=== PATIENT | female | born 1985 | race Hispanic/Latino ===

== ENCOUNTER 2017-04-03 12:53 | Emergency (ER) | payer OTHER ==
[2017-04-03 13:07] VITALS: BMI 25.1
[2017-04-03 13:09] VITALS: RESP 16; TEMP 98
--- NOTE | 2017-04-03 13:25 | ED PDOC ---
Arrival/HPI - General Chief Complaint: Chest Pain Time Seen by Provider: 04/03/17 13:16 Historian: Patient - History of Present Illness Narrative History of Present Illness (Text): 04/03/17 13:22 31 year old female presents to the emergency department with cough waking her up in the middle of the night around 2AM for the past week. She states she "can' t catch her breath" when episodes occur but then once the cough subsides she gets better and symptoms of sob resolve. Some postussive chest pain. No nasal congestion. Denies fever. No PMD Time/Duration: 1 week Symptom Onset: Gradual Symptom Course: Intermittent Associated Symptoms (Text): None Past Medical History - Provider Review Nursing Documentation Reviewed: Yes - Past History Past History: No Previous - Infectious Disease Hx of Infectious Diseases: None - Tetanus Immunization Tetanus Immunization: Unknown - Past Medical History Past Medical History: No Previous - Psychiatric Hx Anxiety: Yes Hx Depression: No Hx Emotional Abuse: No Hx Hallucinations: No Hx Panic Disorder: No Hx Post Traumatic Stress Disorder: No Hx Psychosis: No Hx Physical Abuse: No Hx Schizophrenia: No Hx Sexual Abuse: No Hx Substance Use: No - Past Surgical History Past Surgical History: No Previous - Surgical History Hx Section: Yes (2005) - Anesthesia Hx Anesthesia: Yes Hx Anesthesia Reactions: No Hx Malignant Hyperthermia: No - Suicidal Assessment Feels Threatened In Home Enviroment: No Family/Social History - Physician Review Nursing Documentation Reviewed: Yes Family/Social History: Unknown Family HX Smoking Status: Heavy Smoker > 10 Cigarettes Daily Hx Alcohol Use: Yes Frequency of alcohol use: Few days per week Hx Substance Use: No Hx Substance Use Treatment: No Allergies/Home Meds Allergies/Adverse Reactions: Allergies No Known Allergies Allergy (Verified 04/03/17 13:07) Review of Systems - Physician Review All systems were reviewed & negative as marked: Yes - Review of Systems Constitutional: absent: Fevers, Night Sweats Respiratory: SOB, Cough Cardiovascular: Chest Pain Gastrointestinal: absent: Abdominal Pain Genitourinary Female: Normal Neurological: absent: Headache Endocrine: absent: Diaphoresis Physical Exam Vital Signs Reviewed: Yes Vital Signs Temp Pulse Resp BP Pulse Ox 04/03/17 16:00 90 16 138/80 98 04/03/17 13:08 98 F 95 H 16 139/79 100 Temperature: Afebrile Blood Pressure: Normal Pulse: Regular Respiratory Rate: Normal Appearance: Positive for: Well-Appearing, Non-Toxic, Uncomfortable Pain Distress: None Mental Status: Positive for: Alert and Oriented X 3 - Systems Exam Head: Present: Atraumatic, Normocephalic Pupils: Present: PERRL Extroacular Muscles: Present: EOMI Conjunctiva: Present: Normal Mouth: Present: Moist Mucous Membranes Neck: Present: Normal Range of Motion Respiratory/Chest: Present: Good Air Exchange, Rhonchi (in right lung field resolved after coughing). No: Respiratory Distress, Accessory Muscle Use Cardiovascular: Present: Regular Rate and Rhythm, Normal S1, S2. No: Murmurs Abdomen: Present: Normal Bowel Sounds. No: Tenderness, Distention, Peritoneal Signs Back: Present: Normal Inspection Upper Extremity: Present: Normal Inspection. No: Cyanosis, Edema Lower Extremity: Present: Normal Inspection. No: Edema Neurological: Present: GCS=15, CN II-XII Intact, Speech Normal Skin: Present: Warm, Dry, Normal Color. No: Rashes Psychiatric: Present: Alert, Oriented x 3, Normal Insight, Normal Concentration Medical Decision Making ED Course and Treatment: Impression: 31 year old female presents to the emergency department with cough and shortness of breath waking her up in the middle of the night around 2AM for the past week. Differential Diagnosis included but are not limited to: Cough r/o pneumonia Plan: -- Chest X-ray -- Labs -- Reassess and disposition Progress Notes: CXR negative. I explained patients symptoms of bronchitis. She said she also may get some watery eyes during this season so there may be a component of seasonal allergies. Will Rx Albuterol pump and Claritan. Advised her to return to the ED if symptoms worsen or any other concern. - RAD Interpretation Radiology Orders: 04/03/17 13:33 CXR [CHEST TWO VIEWS (PA/LAT)] [RAD] Stat - EKG Interpretation EKG Interpretation (Text): EKG shows sinus tachycardia at 105 BPM otherwise normal. Interpreted by me. Interpreted by ED Physician: Yes Type: 12 lead EKG - Medication Orders Current Medication Orders: Discontinued Medications Albuterol/Ipratropium (Duoneb 3 Mg/0.5 Mg (3 Ml) Ud) 3 ml IH STAT STA Stop: 04/03/17 13:35 Last Admin: 04/03/17 13:59 Dose: 3 ml Guaifenesin/Dextromethorphan (Robitussin Dm) 10 ml PO STAT STA Stop: 04/03/17 13:35 Last Admin: 04/03/17 13:59 Dose: 10 ml Ibuprofen (Motrin Tab) 800 mg PO STAT STA Stop: 04/03/17 13:35 Last Admin: 04/03/17 13:59 Dose: 800 mg - Gageibe Statement The provider has reviewed the documentation as recorded by the Tennille Henriquez Provider Gageibe Attestation: All medical record entries made by the Gageibtam were at my direction and personally dictated by me. I have reviewed the chart and agree that the record accurately reflects my personal performance of the history, physical exam, medical decision making, and the department course for this patient. I have also personally directed, reviewed, and agree with the discharge instructions and disposition. Disposition/Present on Arrival - Present on Arrival Any Indicators Present on Arrival: No History of DVT/PE: No History of Uncontrolled Diabetes: No Urinary Catheter: No History of Decub. Ulcer: No History Surgical Site Infection Following: None - Disposition Have Diagnosis and Disposition been Completed?: Yes Diagnosis: Bronchitis Disposition: HOME/ ROUTINE Disposition Time: 16:21 Patient Plan: Discharge Condition: IMPROVED Discharge Instructions (ExitCare): Acute Bronchitis (ED) Additional Instructions: Mr Agustin, thank you for letting us take care of you today. Your provider was Dr. Bryan. You were treated for Bronchitis. The emergency medical care you received today was directed at your acute symptoms. If you were prescribed any medication, please fill it and take as directed. It may take several days for your symptoms to resolve. Return to the Emergency Department if your symptoms worsen, do not improve, or if you have any other problems. Please contact your doctor or call one of the physicians/clinics you have been referred to that are listed on the Patient Visit Information form that is included in your discharge packet. Bring any paperwork you were given at discharge with you along with any medications you are taking to your follow up visit. Our treatment cannot replace ongoing medical care by a primary care provider (PCP) outside of the emergency department. Thank you for allowing the [facility] team to be part of your care today. If you had an X-Ray or CT scan: A Radiologist will review the ED reading if any change in treatment is needed we will contact you. If you had a blood, urine, or wound culture: It will take several days for the results, if any change in treatment is needed we will contact you. If you had an STI test: It will take 48 hours for the results. Please call after 1 week if you have not heard back. Prescriptions: Albuterol HFA [Ventolin HFA 90 mcg/actuation (8 g)] 2 puff IH Q4 #1 puff Loratadine [Claritin] 10 mg PO DAILY #30 tab Referrals: [facility] [place]] - Follow up with primary Forms: [facility] (Slovenian), WORK NOTE
[2017-04-03] MEDS ORDERED: guaiFENesin DM 200 mg-20 mg/10 ml UD PO STA (13:34)
[2017-04-03] MEDS ORDERED: Albuterol-Ipratrop 3 mg / 0.5 (3 ml) UD IH STA (13:34)
--- NOTE | 2017-04-03 14:58 | RAD ---
HISTORY: cough r/o pna COMPARISON: 01/16/2015 TECHNIQUE: Chest PA and lateral FINDINGS: LUNGS: No active pulmonary disease. PLEURA: No significant pleural effusion identified. No pneumothorax apparent. CARDIOVASCULAR: Normal. OSSEOUS STRUCTURES: No significant abnormalities. VISUALIZED UPPER ABDOMEN: Normal. OTHER FINDINGS: None. IMPRESSION: No active disease.
[2017-04-03 16:21] VITALS: BP 138/80; PULSE 90; O2SAT 98
--- NOTE | 2017-04-04 10:13 | CARD ---
APPROVED REPORT EKG Measurement Heart [id number] <Conclusion> Sinus tachycardia
== END 2017-04-03 16:23 | disposition home or self-care (01) ==
LOC: ED 12:53
DX: J40 Bronchitis, not specified as acute or chronic (principal)